=== PATIENT | female | born 1965 | race Caucasian/White ===

== ENCOUNTER → 2018-08-14 | Outpatient (CLI) | payer BC ==
[~2018-08-14] MED LIST: ALBU90OI6 INH; ALPR.25 PO; BIOTIN2500 MCG PO; CEPH500 PO; CHOL10002 PO; CYCL10; CYCL10 PO; DIAZIDE; DIPH50 PO; ESOM20; ESTR2 PO; ESTRADIOL1 MG PO; ESTRODIOL; FAMO40 PO; FISH1000 PO; FLUC100 PO; FURO40 PO; HYDACE5; HYDACE5 PO; HYDACE5325 PO; HYDMOR2 PO; LANS15EC PO; LANS30EC; LANS30EC PO; MUPI2TO TOP; ONDA8ODT MM; OXYACE5T PO; PANT40; PROACE100 PO; RANI150 PO; RANITIDINE 300 MG; ROSU10TA; RXCLIN PO; SULTRIDS PO; TRIHYD253A PO
[2018-08-16 15:07] LABS: HPV 16 Negative (Negative); HPV 18 Negative (Negative); HPV OTHER HR TYPES Negative (Negative)
== END ==
LOC: LAB 18:15 → LAB SHORT 18:15
PROVIDERS: Obstetrics & Gynecology Gynecology
DX: Z12.72 Encounter for screening for malignant neoplasm of vagina (principal)
CPT/HCPCS: 87624; G0123

== ENCOUNTER → 2018-09-24 | Outpatient (CLI) | payer BC | END | disposition home or self-care (01) | LOC: LAB 15:40 → LAB SHORT 15:40 | DX: N39.0 Urinary tract infection, site not specified (principal) | CPT/HCPCS: 87077; 87086; 87186 ==

== ENCOUNTER → 2019-08-20 | Outpatient (CLI) | payer BC ==
[2019-08-22 07:08] LABS: HPV 16 Negative (Negative); HPV 18 Negative (Negative); HPV OTHER HR TYPES Negative (Negative)
== END | disposition home or self-care (01) ==
LOC: LAB SHORT 10:34 → LAB 10:34
PROVIDERS: Obstetrics & Gynecology Gynecology
DX: Z12.72 Encounter for screening for malignant neoplasm of vagina (principal)
CPT/HCPCS: 87624; G0123

== ENCOUNTER 2024-09-18 05:46 | Day surgery (SDC) | payer BC ==
[~2024-09-18] VITALS: Ht 162.6 cm; Wt 102.7 kg
[2024-09-18] VITALS (8 sets, daily range): BP systolic 129–184; BP diastolic 80–100
[~2024-09-18 05:46] MED LIST changes: +BENADRYL25 MG PO; +DEXILANT30 MG PO; +ONDA4 PO; +PERCOCET 10-321 EACH PO; +Vitamin K100 MCG PO
[2024-09-18] MEDS ORDERED: CeFAZolin Sodium 2,000 MG in NS 100 ML IV SCH (06:20)
[2024-09-18] MEDS ORDERED: Lactated Ringer's 1,000 ML IV SCH (06:20)
[2024-09-18] MEDS ORDERED: OXYC10ER PO (06:46)
[2024-09-18] MEDS ORDERED: BUPRENORPHIN-N1 EAC1 SL (06:48)
[2024-09-18] MEDS ORDERED: propofoL 20 ML IV ONE (07:15)
[2024-09-18] MEDS ORDERED: FentaNYL Citrate 50 MCG/ML 2 ML Injection ONE (07:15)
[2024-09-18] MEDS ORDERED: Bupivacaine 0.5% HCl 5 MG/ML 30MLVIAL ONE (07:23)
[2024-09-18] MEDS ORDERED: Midazolam HCl 1MG / ML 2ML Vial ONE (07:23)
[2024-09-18] MEDS ORDERED: Midazolam HCl 1MG / ML 2ML Vial IV ONE (07:35)
[2024-09-18] MEDS ORDERED: Dexamethasone Sod Phos 10 MG/ML 1ML VIAL ONE (08:03)
[2024-09-18] MEDS ORDERED: Ondansetron HCl 2 MG / ML 2ML Vial ONE (08:03)
[2024-09-18] MEDS ORDERED: HYDROcodone 5-APAP 325 TAB PO PRN (08:45)
--- NOTE | 2024-09-18 09:07 | NUR ---
Discharge instructions reviewed with patient. Patient verbalizes understanding. Copy given to patient to take home.
== END 2024-09-18 09:09 | disposition home or self-care (01) ==
LOC: ORSCMMR 05:46 → ORD 09:30 → ORSCMMR 09-19 10:15
PROVIDERS: Surgery
PROC: 0HBT0ZX Excision of Right Breast, Open Approach, Diagnostic (ICD-10-PCS; principal; 2024-09-18 07:30)
DX: N64.52 Nipple discharge (principal); D24.1 Benign neoplasm of right breast; G47.33 Obstructive sleep apnea (adult) (pediatric); K21.9 Gastro-esophageal reflux disease without esophagitis; Z85.42 Personal history of malignant neoplasm of other parts of uterus; Z80.3 Family history of malignant neoplasm of breast; Z80.0 Family history of malignant neoplasm of digestive organs; E78.5 Hyperlipidemia, unspecified; I10 Essential (primary) hypertension; J45.909 Unspecified asthma, uncomplicated; Z79.899 Other long term (current) drug therapy
CPT/HCPCS: 88305; 88342; J0690; J1100; J2250; J2405; J2704; J3010; J7120

== ENCOUNTER 2024-10-24 16:48 | Emergency (ER) | payer BC ==
[~2024-10-24] VITALS: Ht 162.6 cm; Wt 92.5 kg
[~2024-10-24 16:48] MED LIST changes: +BUPRENORPHIN-N1 EAC1 SL; +OXYC10ER PO
[2024-10-24 18:01] LABS: BASOPHILS ABSOLUTE AUTO 0.07 K/mm3 (0.00-0.23); BASOPHILS PERCENT AUTO 1 % (0-2); EOSINOPHILS ABSOLUTE AUTO 0.13 K/mm3 (0.00-0.68); EOSINOPHILS PERCENT AUTO 1 % (0-6); Hematocrit 39.6 % (33.0-51.0); Hemoglobin 13.5 g/dL (11.5-16.0); IMMATURE GRAN ABSOLUTE AUTO 0.05 K/mm3 (0.00-0.10); IMMATURE GRAN PERCENT AUTO 0 % (0-1); LYMPHOCYTES ABSOLUTE AUTO 3.47 K/mm3 (0.84-5.20); LYMPHOCYTES PERCENT AUTO 29 % (21-46); MONOCYTES PERCENT AUTO 7 % (4-13); Mean Corpuscular HGB 29.7 pg (26.0-34.0); Mean Corpuscular HGB Conc 34.1 g/dL (31.5-36.5); Mean Corpuscular Volume 87 fL (80-100); Mean Platelet Volume 8.6 fL (9.1-12.4); NEUTROPHILS ABSOLUTE AUTO 7.32 K/mm3 (1.96-9.15); NEUTROPHILS PERCENT AUTO 62 % (41-73); Platelet Count 328 K/mm3 (150-400); RDW Coefficient Variation 12.7 % (11.7-14.2); RDW Standard Deviation 40.8 fL (35.1-46.3); Red Blood Cell Count 4.55 M/mm3 (3.80-5.20); White Blood Cell Count 11.84 K/mm3 (4.00-11.30)
[2024-10-24 18:32] LABS: Albumin, Blood 3.5 g/dL (3.4-5.0); Albumin/Globulin Ratio 0.9 (0.8-1.8); Bilirubin, Total 0.2 mg/dL (0.1-1.0); Bun/Creatinine Ratio 16.3 (12.0-20.0); Calcium, Blood 9.3 mg/dL (8.5-10.1); Creatinine, Blood 0.74 mg/dL (0.40-1.00); Potassium, Blood 3.9 mmol/L (3.5-5.5); Total Protein, Blood 7.5 g/dL (6.4-8.2)
[2024-10-24] MEDS ORDERED: Lansoprazole 15 MG TAB.RAP.DR PO ONE (20:05)
[2024-10-24 21:00] VITALS: BP 145/88
== END 2024-10-24 21:10 | disposition home or self-care (01) ==
LOC: ER 16:48
PROVIDERS: Physician Assistant
DX: R07.89 Other chest pain (principal); I10 Essential (primary) hypertension; Z87.891 Personal history of nicotine dependence; Z79.899 Other long term (current) drug therapy; Z91.038 Other insect allergy status; Z88.2 Allergy status to sulfonamides; Z88.8 Allergy status to other drugs, medicaments and biological substances
CPT/HCPCS: 71046; 80053; 83690; 84484; 85025; 85379; 93005; 93010; 99284-25